=== PATIENT | female | born 1940 | race Asian ===

== ENCOUNTER 2019-12-26 15:49 | Emergency (ER) | payer MEDICARE, OTHER ==
[~2019-12-26] VITALS: Ht 152.4 cm; Wt 54.5 kg
[~2019-12-26 15:49] MED LIST: RALO60 PO; SIMV-259 PO; SULF-168 PO
[2019-12-26 15:51] VITALS: BP 184/82
== END 2019-12-26 16:36 | disposition home or self-care (01) ==
LOC: EMS 15:49
DX: S91.002A Unspecified open wound, left ankle, initial encounter (principal); I10 Essential (primary) hypertension; E78.5 Hyperlipidemia, unspecified; L30.9 Dermatitis, unspecified; Z90.49 Acquired absence of other specified parts of digestive tract; Z88.0 Allergy status to penicillin; X58.XXXA Exposure to other specified factors, initial encounter; Y93.89 Activity, other specified; Y92.89 Other specified places as the place of occurrence of the external cause; Y99.8 Other external cause status

== ENCOUNTER 2020-11-04 15:42 | Emergency (ER) | payer MEDICARE, OTHER ==
[~2020-11-04] VITALS: Ht 149.9 cm; Wt 50.0 kg
[~2020-11-04 15:42] MED LIST changes: -SULF-168 PO
[2020-11-04] MEDS ORDERED: AMLO-257 PO (15:49)
[2020-11-04] MEDS ORDERED: OLME40TA8 PO (15:49)
[2020-11-04 16:31] VITALS: BP 124/85
== END 2020-11-04 16:57 | disposition home or self-care (01) ==
LOC: EMS 15:42
DX: L30.9 Dermatitis, unspecified (principal); I10 Essential (primary) hypertension; G89.29 Other chronic pain; M25.532 Pain in left wrist; M25.531 Pain in right wrist; Z88.0 Allergy status to penicillin
CPT/HCPCS: 99283; Z7502

== ENCOUNTER 2021-11-26 16:11 | Emergency (ER) | payer MEDICARE, OTHER ==
[~2021-11-26] VITALS: Ht 152.4 cm; Wt 59.1 kg
[~2021-11-26 16:11] MED LIST changes: +AMLO-257 PO; +OLME40TA8 PO
[2021-11-26] MEDS ORDERED: ACET-3385 PO (17:08)
[2021-11-26] MEDS ORDERED: SIMV-260 PO (17:09)
[2021-11-26] MEDS ORDERED: AMLO-257 PO (17:09)
[2021-11-26] MEDS ORDERED: OLME40TA8 PO (17:12)
[2021-11-26 17:55] VITALS: BP 151/73
== END 2021-11-26 18:01 | disposition home or self-care (01) ==
LOC: EMS 16:13
DX: I10 Essential (primary) hypertension (principal); Z76.0 Encounter for issue of repeat prescription; Z88.0 Allergy status to penicillin; Z79.899 Other long term (current) drug therapy
CPT/HCPCS: 99281; Z7502

== ENCOUNTER 2022-01-07 15:56 | Emergency (ER) | payer MEDICARE, OTHER ==
[~2022-01-07] VITALS: Ht 152.4 cm; Wt 130.0 kg
[~2022-01-07 15:56] MED LIST changes: +ACET-3385 PO; -RALO60 PO; +SIMV-260 PO
[2022-01-07] MEDS ORDERED: SIMV-260 PO (17:09)
[2022-01-07] MEDS ORDERED: OLME40TA8 PO (17:09)
[2022-01-07] MEDS ORDERED: AMLO-257 PO (17:09)
[2022-01-07 17:12] VITALS: BP 157/84
== END 2022-01-07 17:21 | disposition home or self-care (01) ==
LOC: EMS 15:56
DX: I10 Essential (primary) hypertension (principal); Z87.440 Personal history of urinary (tract) infections; Z87.2 Personal history of diseases of the skin and subcutaneous tissue; Z98.890 Other specified postprocedural states; Z88.0 Allergy status to penicillin; Z76.0 Encounter for issue of repeat prescription
CPT/HCPCS: 99281; Z7502